=== PATIENT | male | born 1980 | race American Indian/Alaskan Native ===

== ENCOUNTER 2016-10-30 13:49 | Outpatient (CLI) | payer OTHER ==
--- NOTE | 2016-10-31 07:38 | Magnetic Resonance Report ---
MR LOWER EXTREMITY JOINT RIGHT WITHOUT CONTRAST HISTORY: Right knee pain, meniscal derangement. TECHNIQUE: Multisequence, multiplanar MRI without contrast. FINDINGS: There is a large joint effusion extending to the suprapatellar bursa. No popliteal cyst. There is a complex tear in the body and posterior horn of the lateral meniscus which extends to the femoral and tibial surfaces. This has the appearance of a fragmented tear. The medial meniscus is normal. The ACL, PCL, MCL, LCL complex and extensor complex are intact. The popliteus is unremarkable. Moderate to severe cartilage loss is suspected along the inferior portions of the lateral patellar facet. There also appears to be a focal cartilage loss along the anterior surface the lateral femoral condyle. The remaining intra-articular cartilage is within normal limits. The bone marrow signal is within normal limits. No osteochondral defect is appreciated. The para-articular musculature is within normal limits IMPRESSION: Complex tear in the body and posterior horn of the lateral meniscus. Chondromalacia patella. Large joint effusion.
== END 2016-10-30 13:50 | disposition home or self-care (01) ==
LOC: MRI 13:49
PROVIDERS: ATTEND Internal Medicine
DX: S83.281A Other tear of lateral meniscus, current injury, right knee, initial encounter (principal); M22.41 Chondromalacia patellae, right knee; X58.XXXA Exposure to other specified factors, initial encounter; Y93.89 Activity, other specified; Y92.89 Other specified places as the place of occurrence of the external cause; Y99.8 Other external cause status
CPT/HCPCS: 73721